=== PATIENT | female | born 1995 | race Caucasian/White ===

== ENCOUNTER 2020-04-12 20:00 | Emergency (ER) | payer SELFPAY ==
[~2020-04-12] VITALS: Ht 162.6 cm; Wt 45.4 kg
--- NOTE | 2020-04-12 20:15 | NUR ---
ED Nurse Note: Pt c/o sore throat x2 weeks. Reports negative covid test last Thursday. Has been seen at urgent care but was told her tonsil is scratched. Pt reports she is just concerned, because she is having pain. Pt is AAO x4, speaks in full sentences, and ambulated into ED without assistance.
[2020-04-12 20:17] VITALS: BP 115/70
--- NOTE | 2020-04-12 20:23 | Emergency Room Report ---
History of Present Illness General Chief Complaint: Sore Throat Source: Patient Present Illness HPI Disclaimer: Please note that this report is being documented using DRAGON technology. This can lead to erroneous entry secondary to incorrect interpretation by the dictating instrument. HPI: 24-year-old otherwise healthy female presents for sore throat. Patient states she had a viral syndrome lasting 2 to 3 days approximately 2 weeks ago. She reports persistent sore throat only on the right side. No difficulty swallowing. No difficulty tolerating secretions. Denies shortness of breath, stridor, throat swelling. Denies fever or chills. Tested negative for COVID-19 last week. Feeling better otherwise. Denies lethargy, abdominal pain, nausea, vomiting. Denies ever having a rash. No prior history of tonsillitis. She does smoke. He states her previous doctor told her she had a scratch on her tonsil. 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 EOMI. PERRLA. Uvula midline. Tonsils 3+ and erythematous. No edema. No exudate. No ulcerations or skin breakdown over the mucosa. Tongue appears normal. No strawberry tongue. No lymphadenopathy palpable in the subma ndibular or cervical region. Resp: Normal work of breathing Skin: Intact. No abrasions, laceration or rash over the exposed skin MSK: Normal tone and bulk. Moving all extremities. No obvious deformity. Neuro: Awake and alert. Mentating appropriately Medical Decision Making Diagnostic Impression: Primary Impression: Sore throat ER Course 24-year-old female presenting for persistent sore throat approximately 2 weeks duration. Tonsils appear slightly enlarged and erythematous but no purulence, no lymphadenopathy, afebrile, no abdominal pain. I do not see an obvious scratch or other signs of foreign body or trauma. Suspect is persistent inflammation and at this time do not suspect mononucleosis or other significant pathology however if symptoms persist the patient will return for reevaluation. I will give a dose of steroids in the ER and she will continue NSAIDs at home. Instructed her not to smoke. Otherwise arrives with normal vital signs, tolerating secretions and has normal phonation. Stable for outpatient follow-up with strict return precautions discussed. She understands and agrees with this treatment plan. Last Vital Signs Date Time Temp Pulse Resp B/P (MAP) Pulse Ox O2 Delivery O2 Flow Rate FiO2 04/12/20 20:07 98.1 78 15 115/70 (85) 96 Room Air Disposition: HOME, SELF-CARE Condition: Stable Referrals: [facility] Patient Instructions: Sore Throat Additional Instructions: Please follow-up with your primary care doctor in the next 1 to 3 days to discuss this emergency department visit and for reevaluation. If you have any new or worsening symptoms please return to the emergency department for reevaluation. Please note that this report is being documented using TEVIZZ technology. This can lead to erroneous entry secondary to incorrect interpretation by the dictating instrument. Patrick Hicks MD Apr 12, 2020 20:23
[2020-04-12 20:27] VITALS: BP 115/70
--- NOTE | 2020-04-12 20:28 | NUR ---
ED Nurse Note: Pt cleared by health care Provider for discharge. D/C instructions given and explained to pt, and pt verbalized understanding of teachings. ID band removed. Pt is AAO x4, ambulatory and left with all personal belongings.
[2020-04-13] MEDS ORDERED: ZITHROMAX250 MG ORAL (22:09)
== END 2020-04-12 20:30 | disposition home or self-care (01) ==
LOC: EMR 20:20
DX: J39.0 Retropharyngeal and parapharyngeal abscess (principal); Z88.0 Allergy status to penicillin; Z72.0 Tobacco use
CPT/HCPCS: 99282; J7512

== ENCOUNTER 2020-04-13 21:32 | Emergency (ER) | payer SELFPAY ==
[~2020-04-13] VITALS: Ht 162.6 cm; Wt 45.4 kg
--- NOTE | 2020-04-13 21:54 | NUR ---
ED Nurse Note: Patient came to the ED complaining of a sore throatx 2 weeks. Patient reports that she was given steroid yesterday, felt better, today sore throat is worse. Denies fever, cough,SOB or chest pain.
[2020-04-13] MEDS ORDERED: ZITHROMAX250 MG ORAL (22:09)
--- NOTE | 2020-04-13 22:09 | Emergency Room Report ---
History of Present Illness General Chief Complaint: Sore Throat Source: Patient Present Illness [facility] This is a 24-year-old female with no past medical history she presents with chief complaint of sore throat and ear pain. Onset for last 2 to 3 weeks ever since she got sick from a viral illness. Is been persistent. No cough congestion now. She was seen here yesterday got a dose of steroid. She said that helped. Ibuprofen helps. Pain is now going to her left ear. No fever or chills. Pain is 7 out of 10. Allergies: Coded Allergies: PENICILLINS (Verified Allergy, Unknown, 04/12/20) COVID-19 Screening Contact w/high risk pt: No Experienced COVID-19 symptoms?: Yes COVID-19 Testing performed SPACE OPERATIONS: No Patient History Past Medical History: see triage record, old chart reviewed Past Surgical History: none Pertinent Family History: none Social History: Denies: smoking Now: No Immunizations: other Reviewed Nursing Documentation: PMH: Agreed; PSxH: Agreed Nursing Documentation-PMH Past Medical History: No Stated History Review of Systems Eye: Denies: eye pain, blurred vision ENT: Reports: throat pain; Denies: ear pain, nose congestion, throat swelling Respiratory: Denies: cough, shortness of breath Cardiovascular: Denies: chest pain, palpitations Gastrointestinal: Denies: abdominal pain, diarrhea, nausea, vomiting Musculoskeletal: Denies: back pain, joint pain Skin: Denies: rash Neurological: Denies: headache, numbness Endocrine: Denies: increased thirst, increased urine Hematologic/Lymphatic: Denies: easy bruising All Other Systems: negative except mentioned in HPI Physical Exam Vital Signs Date Time Temp Pulse Resp B/P (MAP) Pulse Ox O2 Delivery O2 Flow Rate FiO2 04/13/20 21:46 98.2 74 18 104/75 (85) 100 Room Air Normal vitals Sp02 EP Interpretation: reviewed, normal General Appearance: well appearing, no apparent distress, alert Head: normocephalic, atraumatic Eyes: bilateral eye PERRL, bilateral eye EOMI ENT: hearing grossly normal, normal pharynx, tonsillar swelling - Mild edema to the left tonsil, pharyngeal erythema, other - TMs normal Neck: full range of motion, supple, no meningismus Respiratory: chest non-tender, lungs clear, normal breath sounds Cardiovascular #1: regular rate, rhythm, no murmur Gastrointestinal: normal bowel sounds, non tender, no mass, no organomegaly, no bruit, non-distended Musculoskeletal: back normal, normal range of motion, gait/station normal Psychiatric: mood/affect normal Medical Decision Making Diagnostic Impression: Primary Impression: Pharyngitis, acute Qualified Codes: J02.9 - Acute pharyngitis, unspecified ER Course Patient presents with pharyngitis. Is been going on for 2 to 3 weeks. We will go ahead and treat with antibiotics to cover for atypical bacterial infection. No evidence of retropharyngeal abscess, peritonsillar abscess or Nathaniel angina. Last Vital Signs Date Time Temp Pulse Resp B/P (MAP) Pulse Ox O2 Delivery O2 Flow Rate FiO2 04/13/20 21:46 98.2 74 18 104/75 (85) 100 Room Air Status: unchanged Disposition: HOME, SELF-CARE Condition: Stable Scripts Azithromycin* (ZITHROMAX*) 250 Mg Tablet 250 MG ORAL DAILY, #6 TAB 0 Refills Take two tables once daily for 1 day, then one tablet once daily for 4 days. Prov: Carlitos Ewing MD 04/13/20 Additional Instructions: Increase fluids. Salt water gargle. Follow-up with your doctor in 7 days. Return if symptoms worsen. Carlitos Ewing MD Apr 13, 2020 22:09
[2020-04-13 22:14] VITALS: BP 104/75
--- NOTE | 2020-04-13 22:14 | NUR ---
ER DISCHARGE NOTE: Patient is cleared to be discharged per ERMD, pt is aox4, on room air, with stable vital signs. pt was given dc and prescription instructions, pt was able to verbalize understanding, pt id band removed. pt is able to ambulate with steady gait. pt took all belongings.
== END 2020-04-13 22:16 | disposition home or self-care (01) ==
LOC: EMR 22:05
DX: J02.9 Acute pharyngitis, unspecified (principal); Z88.0 Allergy status to penicillin
CPT/HCPCS: 99282